=== PATIENT | male | born 1940 | race Two or more races ===

== ENCOUNTER 2017-04-09 19:21 | Inpatient (IN) | payer MEDICARE, OTHER ==
[~2017-04-09] VITALS: Ht 167.6 cm; Wt 63.5 kg
--- NOTE | 2017-04-09 20:32 | NUR ---
Melvin olivarez in [facility] - 04/09/17 at 2241 by JUNE huong merida at [facility] for eval.
--- NOTE | 2017-04-09 20:40 | NUR ---
pt wheeled to er bed 12. bib by unknown. pt appears confused. emirati speaking. gowned ans placed on monitore. hypertensive lpta. awaiting md delgado.
[2017-04-09] MEDS ORDERED: LORAZEPAM INJ 2 MG/ML VIAL ONE (20:42)
--- NOTE | 2017-04-09 20:42 | NUR ---
huong merida at bedside for eval.
--- NOTE | 2017-04-09 20:50 | NUR ---
iv line started blood drawn and sent to lab.
[2017-04-09 20:54] LABS: BASOPHILS # (AUTO) 0.1 /CMM (0.0-0.2); BASOPHILS % (AUTO) 1.1 % (0.0-2.0); EOSINOPHILS # (AUTO) 0.1 /CMM (0.0-0.7); EOSINOPHILS % (AUTO) 1.9 % (0.0-6.0); HEMATOCRIT 31 % (39-51); HEMOGLOBIN 10.3 g/dL (13.5-17.5); LYMPHOCYTES # (AUTO) 2.2 /CMM (0.8-4.8); LYMPHOCYTES % (AUTO) 35.9 % (20.0-44.0); MEAN CORPUSCULAR HEMOGLOBIN 29 PG (26.0-33.0); MEAN CORPUSCULAR HGB CONC 33 g/dl (31.0-36.0); MEAN CORPUSCULAR VOLUME 86 fL (80-96); MONOCYTES # (AUTO) 0.5 /CMM (0.1-1.30); MONOCYTES % (AUTO) 8.6 % (2.0-12.0); NEUTROPHILS # (AUTO) 3.1 /CMM (1.8-8.9); NEUTROPHILS % (AUTO) 52.5 % (43.0-81.0); PLATELET COUNT (AUTO) 206 /CMM (150-450)
[2017-04-09] MEDS ORDERED: LORAZEPAM INJ 2 MG/ML VIAL IV ONE (21:00)
[2017-04-09 21:04] LABS: CALCIUM, SERUM 9.1 mg/dL (8.5-10.1); CARBON DIOXIDE 25 mmol/L (21-32); CHLORIDE 106 mmol/L (98-107); CREATININE 1.6 mg/dL (0.6-1.3); GLUCOSE 65 mg/dL (74-106); POTASSIUM 4.8 mmol/L (3.5-5.1); SODIUM SERUM 139 mmol/L (136-145); UREA NITROGEN, BLOOD 44 mg/dL (7-18)
[2017-04-09 21:09] LABS: ALANINE AMINOTRANSFERASE 24 U/L (12-78); ALBUMIN 3.5 g/dL (3.4-5.0); ALKALINE PHOSPHATASE 106 U/L (46-116); ASPARTATE AMINOTRANSFERASE 12 U/L (15-37); BILIRUBIN,DIRECT 0.1 mg/dL (0.0-0.2); BILIRUBIN,TOTAL 0.3 mg/dL (0.2-1.0); TOTAL PROTEIN, SERUM 6.6 g/dL (6.4-8.2)
[2017-04-09 21:16] LABS: APPEARANCE,URINE Clear (CLEAR); BILIRUBIN,URINE Negative (NEGATIVE); BLOOD, URINE Negative Ery/uL (NEGATIVE); COLOR,URINE Yellow (YELLOW); KETONES,URINE Negative (NEGATIVE); LEUKOCYTE ESTERASE ,URINE Negative (NEGATIVE); NITRITE, URINE Negative (NEGATIVE); PROTEIN,URINE 100 mg/dl (NEGATIVE); UGLUCOSE Negative (NEGATIVE); UROBILINOGEN,URINE 0.2 EU/dL (0.2)
[2017-04-09 21:25] LABS: SALICYLATE 1.1 mg/dL (2.8-20.0)
[2017-04-09 21:28] LABS: BACTERIA,URINE Few /HPF (None Seen); MUCUS,URINE Few /LPF (None Seen); RBC,URINE NONE SEEN /HPF (0-2); SQUAMOUS EPITHELIAL CELL,UR Few /HPF (None Seen); URINE AMORPHOUS URATE Moderate /HPF (None Seen); WBC,URINE 0-2 /HPF (0-3)
--- NOTE | 2017-04-09 22:05 | NUR ---
CALLED ART COMPUTER SYSTEMS TECHNICIAN, HE SAID HE WOULD COME.
[2017-04-09] MEDS ORDERED: DEXTROSE 50%-WATER 50 ML DISP.SYRIN ONE (22:11)
[2017-04-09] MEDS ORDERED: DEXTROSE 50%-WATER 50 ML DISP.SYRIN IVP ONE (22:30)
[2017-04-09 22:31] LABS: ALCOHOL, BLOOD < 3 mg/dL (0-0)
[2017-04-09 22:32] LABS: ACETAMINOPHEN 0 ug/ml (10-30)
--- NOTE | 2017-04-09 23:30 | NUR ---
report to charge nurse theron for tawanna.
--- NOTE | 2017-04-10 00:40 | NUR ---
report given to solange donis for continuation of care.
--- NOTE | 2017-04-10 00:45 | NUR ---
IV removed. Catheter intact and site benign. Pressure and 4x4 applied to site. No bleeding noted.
[2017-04-10] MEDS ORDERED: CLON0.1T PO (01:00)
[2017-04-10] MEDS ORDERED: BISA10SU8 RC (01:00)
[2017-04-10] MEDS ORDERED: ATEN25TA PO (01:00)
[2017-04-10] MEDS ORDERED: DOCU-170 PO (01:00)
[2017-04-10] MEDS ORDERED: LOSA50TA3 PO (01:00)
[2017-04-10] MEDS ORDERED: AMAN100T PO (01:00)
[2017-04-10] MEDS ORDERED: ACET325T53 PO (01:00)
--- NOTE | 2017-04-10 01:00 | NUR ---
pt transfered to [facility] via wheelchair.
--- NOTE | 2017-04-10 01:05 | NUR ---
ADMITTED A 76 Y/O MALE FROM [facility], ON 5150 HOLD FOR GD, PER HOLD PATIENT IS AGITATED, AGGRESSIVE, COMBATIVE TOWARD STAFF AND NON COMPLIANT. PATIENT WAS TRANSFERRED FROM ER TO GPS UNIT VIA WHEELCHAIR. PATIENT ADMITTING DX. OF PSYCHOSIS AND MEDICAL DX. OF HYPERTENSION,DM 2, DEMENTIA, ANEMIA, PARKINSON AND GERD. UPON FACE TO FACE EVALUATION, PATIENT APPEARED ALERT AND ORIENTED X 1, HEBREW SPEAKING, CONFUSED, DISORGANIZED, PARANOID, GUARDED AND AGITATED. REDIRECTION AND EXPLANATION GIVEN TO THE PATIENT. PATIENT USES WHEELCHAIR FOR AMBULATION, PATIENT COOPERATIVE TO THE HEAD TO TOE BODY ASSESSMENT. NO SOB, NO ACUTE DISTRESS, BREATHING EVEN AND UNLABORED, DENIES PAIN AND DISCOMFORT, PATIENT UNABLE TO SIGN PAPER WORKS, PICTURE TAKEN DONE, BELONGINGS AND CONTRABAND INSPECTED AND PLACED ON SAFE. NOTIFIED DR. DE LEON AND NOTIFIED DR. GRECO TO RECONCILE MEDICATION. SNACKS GIVEN TO THE PATIENT. KEPT CLEAN, DRY AND COMFORTABLE, WILL CONTINUE TO MONITOR [id number] FOR SAFETY.
[2017-04-10] MEDS ORDERED: MAGNESIUM HYDROXIDE 30 ML UDC PO PRN ×2 (01:30→10:00)
[2017-04-10] MEDS ORDERED: ACETAMINOPHEN 325 MG TABLET PO PRN ×2 (01:30→08:30)
[2017-04-10] MEDS ORDERED: MAG HYDROX/AL HYDROX/SIMETH 30 ML UDC PO PRN (01:30)
[2017-04-10] MEDS ORDERED: LOSA25TA13 PO (01:35)
[2017-04-10] MEDS ORDERED: QUET400T PO (01:35)
[2017-04-10] MEDS ORDERED: GLUC1KIT SQ (01:35)
[2017-04-10] MEDS ORDERED: DONE10TA44 PO (01:35)
[2017-04-10] MEDS ORDERED: FERR-58 PO (01:35)
[2017-04-10] MEDS ORDERED: MULT-213 PO (01:35)
[2017-04-10] MEDS ORDERED: FAMO20TA8 PO (01:35)
[2017-04-10] MEDS ORDERED: MAG355OR18 PO (01:35)
[2017-04-10] MEDS ORDERED: NA P133E RC (01:35)
[2017-04-10] MEDS ORDERED: VALP250C3 PO (01:35)
[2017-04-10] MEDS ORDERED: MAGN2400 PO (01:35)
[2017-04-10] MEDS ORDERED: DEXT38GE12 PO (01:35)
[2017-04-10] MEDS ORDERED: IPRA3AMP IH (01:35)
[2017-04-10] MEDS ORDERED: PSYL1PAC PO (01:35)
[2017-04-10] MEDS ORDERED: MELA5TAB PO (01:35)
[2017-04-10] MEDS ORDERED: CLONIDINE HCL 0.1 MG TABLET ONE (01:39)
[2017-04-10] MEDS: CLONIDINE HCL 0.1 MG TABLET PO PRN (02:04)
[2017-04-10 02:42] VITALS: BP 182/80
[2017-04-10] MEDS ORDERED: LORAZEPAM 0.5 MG TABLET ONE (05:47)
--- NOTE | 2017-04-10 06:08 | NUR ---
PATIENT NOTED WITH ON AND OFF CONFUSION AND AGITATION. SAFETY PRECAUTION PROVIDED. REDIRECTED THE PATIENT. PATIENT WENT BACK TO SLEEP. WILL CONTINUE TO MONITOR.
[2017-04-10 08:00] VITALS: BP 177/90
[2017-04-10] MEDS ORDERED: DEXTROSE 50%-WATER 50 ML DISP.SYRIN IV PRN (08:00)
[2017-04-10] MEDS: hydrALAZINE HCL 25 MG TABLET PO PRN (08:02)
[2017-04-10] MEDS: ATENOLOL 25 MG TABLET PO SCH (08:11)
[2017-04-10] MEDS ORDERED: CLONIDINE HCL 0.1 MG TABLET PO PRN (08:30)
[2017-04-10] MEDS ORDERED: NA PHOS,M-B/NA PHOS,DI-BA 1 EA ENEMA RC PRN (08:30)
[2017-04-10] MEDS ORDERED: GLUTOSE 15 G GEL..GM. PO PRN (08:30)
[2017-04-10] MEDS ORDERED: BISACODYL SUPP (10 MG) 10 MG/SUPP.RECT SUPP.RECT RC PRN (08:30)
[2017-04-10] MEDS: LOSARTAN POTASSIUM 50 MG TABLET PO SCH (09:00)
[2017-04-10] MEDS ORDERED: LOSARTAN POTASSIUM 25 MG TABLET PO SCH (09:00)
[2017-04-10] MEDS ORDERED: LOSARTAN POTASSIUM 50 MG TABLET PO SCH (09:00)
[2017-04-10] MEDS ORDERED: ATENOLOL 25 MG TABLET PO SCH (09:00)
[2017-04-10] MEDS: DONEPEZIL 5 MG TABLET PO SCH (10:14)
[2017-04-10] MEDS: MULTIVIT, IRON, MIN NO. 8, FA 1 TAB PO SCH (10:14)
[2017-04-10] MEDS: DOCUSATE SODIUM 100 MG CAPSULE PO SCH ×2 (10:14→17:32)
[2017-04-10] MEDS: FERROUS SULFATE (325 MG) 325 MG/TAB TABLET PO SCH ×2 (10:15→17:33)
[2017-04-10] MEDS: FAMOTIDINE (20 MG) 20 MG TABLET PO SCH ×3 (10:15→17:32)
[2017-04-10] MEDS ORDERED: IPRATROPIUM NEB FS 0.5 MG/2.5 ML AMPUL.NEB NEB PRN ×2 (10:30)
[2017-04-10] MEDS ORDERED: GLUCAGON,HUMAN RECOMBINANT 1 MG/VIAL VIAL SQ PRN (10:30)
[2017-04-10] MEDS ORDERED: VALPROIC ACID 250 MG/5 ML UDC PO SCH (11:00)
[2017-04-10] MEDS ORDERED: K PHOS NEUTRAL 250 MG TABLET PO ONE (12:00)
[2017-04-10] MEDS: BLOOD SUGAR DIAGNOSTIC 1 EACH STRIP IN SCH ×3 (12:07→21:28)
[2017-04-10] MEDS: INSULIN REGULAR, HUMAN 100 UNIT/ML 3 ML VIAL SQ PRN ×2 (12:24→17:42)
[2017-04-10] MEDS ORDERED: ALBUTEROL FS 2.5 MG/3 ML VIAL.NEB NEB PRN (13:30)
--- NOTE | 2017-04-10 13:31 | NUR ---
Initial Discharge Plan: Per sister, patient resides at [facility] [address] [place] [address] ([phone]). Sw spoke to patient's sister Dina Garza ([phone]) who confirmed that patient resides at [facility] however, patient's sister stated that the facility is very far away from her as she lives in [place] and would prefer something closer. Sw spoke to Essence the social science teacher at the facility who stated that patient was on a bed hold however the patient's sister was looking for a closer placement to her. Sw will help form a safe and proper discharge
[2017-04-10] MEDS: AMANTADINE SUSP 50 MG/5 ML UDC PO SCH (13:43)
[2017-04-10 16:00] VITALS: BP 145/45
[2017-04-10] MEDS: QUETIAPINE FUMARATE 100 MG TABLET PO SCH ×2 (17:32→21:28)
[2017-04-10 18:41] LABS: CREATININE 1.2 mg/dL (0.6-1.3)
[2017-04-10 19:04] LABS: CHOLESTEROL 133 mg/dL (<200); HDL CHOLESTEROL 58 mg/dL (40-60); LDL 59 mg/dL (0-99); TRIGLYCERIDES 81 mg/dL (30-150)
--- NOTE | 2017-04-10 20:00 | NUR ---
GPS RN NOTES PT REFUSED VITAL SIGNS.
[2017-04-10] MEDS ORDERED: DIVALPROEX SODIUM 500 MG TABLET.DR PO SCH (21:00)
[2017-04-10] MEDS: ZOLPIDEM TARTRATE 5 MG TABLET PO PRN (21:28)
[2017-04-10] MEDS ORDERED: Medication Not On Formulary EA (Melatonin 5 MG) PO SCH (22:00)
[2017-04-11] MEDS: LORAZEPAM 0.5 MG TABLET PO PRN (03:38)
[2017-04-11] MEDS: INSULIN REGULAR, HUMAN 100 UNIT/ML 3 ML VIAL SQ PRN ×3 (07:28→21:09)
[2017-04-11] MEDS: BLOOD SUGAR DIAGNOSTIC 1 EACH STRIP IN SCH ×4 (07:53→21:04)
[2017-04-11 08:00] VITALS: BP 154/60
[2017-04-11] MEDS: FAMOTIDINE (20 MG) 20 MG TABLET PO SCH ×3 (09:07→16:53)
[2017-04-11] MEDS: QUETIAPINE FUMARATE 100 MG TABLET PO SCH ×4 (09:07→20:56)
[2017-04-11] MEDS: ATENOLOL 25 MG TABLET PO SCH (09:07)
[2017-04-11] MEDS: MULTIVIT, IRON, MIN NO. 8, FA 1 TAB PO SCH (09:07)
[2017-04-11] MEDS: DOCUSATE SODIUM 100 MG CAPSULE PO SCH ×2 (09:07→16:53)
[2017-04-11] MEDS: DONEPEZIL 5 MG TABLET PO SCH (09:08)
[2017-04-11] MEDS: PSYLLIUM SEED 1 PKT PACKET PO SCH (09:08)
[2017-04-11] MEDS: LOSARTAN POTASSIUM 50 MG TABLET PO SCH (09:08)
[2017-04-11] MEDS: FERROUS SULFATE (325 MG) 325 MG/TAB TABLET PO SCH ×2 (09:08→16:53)
[2017-04-11] MEDS: AMANTADINE SUSP 50 MG/5 ML UDC PO SCH (10:40)
[2017-04-11] MEDS: DIVALPROEX SODIUM 125 MG CAP.SPRINK PO SCH ×2 (10:41→20:56)
[2017-04-11 16:00] VITALS: BP 141/74
--- NOTE | 2017-04-11 19:32 | NUR ---
GPS/RN NOTE: SITTING INSIDE THE DINING AREA ON A TERRENCE CHAIR. NO APPARENT DISTRESS NOTED. NO VERBAL RESPONSE WHEN ENGAGED, BUT NODS HIS HEAD.
[2017-04-11 20:00] VITALS: BP 138/60
--- NOTE | 2017-04-11 21:04 | NUR ---
GPS/RN NOTE: ACCUCHECK 178 MG/DL.
[2017-04-12] MEDS: BLOOD SUGAR DIAGNOSTIC 1 EACH STRIP IN SCH ×4 (07:54→21:20)
[2017-04-12 08:00] VITALS: BP 170/73
[2017-04-12] MEDS: MULTIVIT, IRON, MIN NO. 8, FA 1 TAB PO SCH (08:14)
[2017-04-12] MEDS: FERROUS SULFATE (325 MG) 325 MG/TAB TABLET PO SCH ×2 (08:14→16:04)
[2017-04-12] MEDS: QUETIAPINE FUMARATE 100 MG TABLET PO SCH ×4 (08:14→21:16)
[2017-04-12] MEDS: DIVALPROEX SODIUM 125 MG CAP.SPRINK PO SCH ×2 (08:14→21:16)
[2017-04-12] MEDS: PSYLLIUM SEED 1 PKT PACKET PO SCH (08:14)
[2017-04-12] MEDS: DOCUSATE SODIUM 100 MG CAPSULE PO SCH ×2 (08:14→16:04)
[2017-04-12] MEDS: DONEPEZIL 5 MG TABLET PO SCH (08:14)
[2017-04-12] MEDS: FAMOTIDINE (20 MG) 20 MG TABLET PO SCH ×3 (08:14→16:04)
[2017-04-12] MEDS: ATENOLOL 25 MG TABLET PO SCH (08:15)
[2017-04-12] MEDS: LOSARTAN POTASSIUM 50 MG TABLET PO SCH (08:15)
[2017-04-12] MEDS: AMANTADINE SUSP 50 MG/5 ML UDC PO SCH (08:16)
[2017-04-12] MEDS: INSULIN REGULAR, HUMAN 100 UNIT/ML 3 ML VIAL SQ PRN ×2 (12:01→21:22)
[2017-04-12 16:08] VITALS: BP 144/82
--- NOTE | 2017-04-12 19:41 | NUR ---
GPS/RN NOTE: PATIENT AT THE DINING AREA ON THE TERRENCE-CHAIR. NO APPARENT DISTRESS NOTED.
[2017-04-12 20:00] VITALS: BP 140/71
[2017-04-12] MEDS: LORAZEPAM 0.5 MG TABLET PO PRN (21:15)
--- NOTE | 2017-04-12 21:20 | NUR ---
GPS/RN NOTE: ACCUCHECK 139 MG/DL, 2 UNITS REG. INSULIN SC ADMINISTERED, PUDDING GIVEN FOR SNACKS.
[2017-04-13 07:06] LABS: BASOPHILS # (AUTO) 0.1 /CMM (0.0-0.2); BASOPHILS % (AUTO) 0.7 % (0.0-2.0); EOSINOPHILS # (AUTO) 0.3 /CMM (0.0-0.7); EOSINOPHILS % (AUTO) 3.5 % (0.0-6.0); HEMATOCRIT 34 % (39-51); HEMOGLOBIN 11.2 g/dL (13.5-17.5); LYMPHOCYTES # (AUTO) 3.5 /CMM (0.8-4.8); LYMPHOCYTES % (AUTO) 43.8 % (20.0-44.0); MEAN CORPUSCULAR HEMOGLOBIN 29 PG (26.0-33.0); MEAN CORPUSCULAR HGB CONC 33 g/dl (31.0-36.0); MEAN CORPUSCULAR VOLUME 88 fL (80-96); MONOCYTES # (AUTO) 0.9 /CMM (0.1-1.30); MONOCYTES % (AUTO) 11.5 % (2.0-12.0); NEUTROPHILS # (AUTO) 3.2 /CMM (1.8-8.9); NEUTROPHILS % (AUTO) 40.5 % (43.0-81.0); PLATELET COUNT (AUTO) 271 /CMM (150-450); RDW COEFFICIENT OF VARIATION 18.1 (11.5-15.0); WHITE BLOOD COUNT (AUTO) 7.9 K/uL (4.3-11.0)
[2017-04-13 07:28] LABS: CALCIUM, SERUM 8.8 mg/dL (8.5-10.1); CARBON DIOXIDE 28 mmol/L (21-32); CHLORIDE 102 mmol/L (98-107); GLUCOSE 96 mg/dL (74-106); MAGNESIUM 2.1 mg/dL (1.8-2.4); PHOSPHORUS 4.9 mg/dL (2.5-4.9); POTASSIUM 5.5 mmol/L (3.5-5.1); SODIUM SERUM 141 mmol/L (136-145); UREA NITROGEN, BLOOD 40 mg/dL (7-18)
[2017-04-13] MEDS: BLOOD SUGAR DIAGNOSTIC 1 EACH STRIP IN SCH ×4 (07:30→21:05)
--- NOTE | 2017-04-13 07:30 | NUR ---
GPS RN AM NOTE: PT ON GERICHAIR IN DINING AREA. NO APPARENT DISTRESS NOTED. NON VERBAL. FLAT AFFECT. UNINTELLIGIBLE WORDS, UNABLE TO DO ACCUCHECK, PATIENT PULLS BACK HIS ARMS/HANDS AND HITS. WILL CONT TO MONITOR.
[2017-04-13 08:00] VITALS: BP 131/67
[2017-04-13 08:16] VITALS: BP 131/67
[2017-04-13] MEDS: FAMOTIDINE (20 MG) 20 MG TABLET PO SCH ×3 (08:58→16:21)
[2017-04-13] MEDS: DIVALPROEX SODIUM 125 MG CAP.SPRINK PO SCH ×2 (08:58→21:26)
[2017-04-13] MEDS: ATENOLOL 25 MG TABLET PO SCH (08:59)
[2017-04-13] MEDS: MULTIVIT, IRON, MIN NO. 8, FA 1 TAB PO SCH (08:59)
[2017-04-13] MEDS: DOCUSATE SODIUM 100 MG CAPSULE PO SCH ×2 (08:59→16:21)
[2017-04-13] MEDS: DONEPEZIL 5 MG TABLET PO SCH (08:59)
[2017-04-13] MEDS: LOSARTAN POTASSIUM 50 MG TABLET PO SCH (08:59)
[2017-04-13] MEDS: QUETIAPINE FUMARATE 100 MG TABLET PO SCH ×4 (08:59→21:26)
[2017-04-13] MEDS: FERROUS SULFATE (325 MG) 325 MG/TAB TABLET PO SCH ×2 (08:59→16:21)
[2017-04-13] MEDS: PSYLLIUM SEED 1 PKT PACKET PO SCH (09:05)
[2017-04-13] MEDS: AMANTADINE SUSP 50 MG/5 ML UDC PO SCH (09:05)
[2017-04-13] MEDS: LORAZEPAM 0.5 MG TABLET PO PRN ×2 (10:46→23:08)
--- NOTE | 2017-04-13 12:00 | NUR ---
GPS RN NOTE: STILL WITH UNINTELLIGIBLE WORDS, UNABLE TO DO ACCUCHECK, PATIENT SPITS AND HITS. WILL CONT TO MONITOR.
[2017-04-13 16:00] VITALS: BP 114/66
[2017-04-13] MEDS: INSULIN REGULAR, HUMAN 100 UNIT/ML 3 ML VIAL SQ PRN (16:34)
--- NOTE | 2017-04-13 19:14 | NUR ---
GPS/RN NOTE: ROUNDED, PATIENT WAS SEEN RESTING QUIETLY AT THE DINING ROOM, CALM, SHOWING NO SIGNS OF ANY DISTRESS.
[2017-04-13 20:14] VITALS: BP 133/56
--- NOTE | 2017-04-13 21:06 | NUR ---
GPS/RN NOTE: ACCUCHECK 89 MG/DL, NO INSULIN SLIDING SCALE DUE AT THIS TIME.
[2017-04-14 07:08] LABS: BASOPHILS % (AUTO) 0.6 % (0.0-2.0); EOSINOPHILS # (AUTO) 0.2 /CMM (0.0-0.7); EOSINOPHILS % (AUTO) 4.2 % (0.0-6.0); HEMATOCRIT 31 % (39-51); HEMOGLOBIN 10.4 g/dL (13.5-17.5); LYMPHOCYTES # (AUTO) 1.7 /CMM (0.8-4.8); LYMPHOCYTES % (AUTO) 31.1 % (20.0-44.0); MEAN CORPUSCULAR HEMOGLOBIN 29 PG (26.0-33.0); MEAN CORPUSCULAR HGB CONC 34 g/dl (31.0-36.0); MEAN CORPUSCULAR VOLUME 87 fL (80-96); MONOCYTES # (AUTO) 0.7 /CMM (0.1-1.30); MONOCYTES % (AUTO) 12.9 % (2.0-12.0); NEUTROPHILS # (AUTO) 2.8 /CMM (1.8-8.9); NEUTROPHILS % (AUTO) 51.2 % (43.0-81.0); PLATELET COUNT (AUTO) 248 /CMM (150-450); RDW COEFFICIENT OF VARIATION 17.4 (11.5-15.0); RED BLOOD CELL COUNT(AUTO) 3.57 MIL/uL (4.5-6.0); WHITE BLOOD COUNT (AUTO) 5.4 K/uL (4.3-11.0)
[2017-04-14] MEDS: BLOOD SUGAR DIAGNOSTIC 1 EACH STRIP IN SCH ×4 (07:28→21:47)
[2017-04-14 07:42] LABS: ALANINE AMINOTRANSFERASE 43 U/L (12-78); ALKALINE PHOSPHATASE 124 U/L (46-116); ASPARTATE AMINOTRANSFERASE 22 U/L (15-37); BILIRUBIN,TOTAL 0.2 mg/dL (0.2-1.0); CALCIUM, SERUM 8.3 mg/dL (8.5-10.1); CARBON DIOXIDE 28 mmol/L (21-32); CHLORIDE 102 mmol/L (98-107); CREATININE 1.6 mg/dL (0.6-1.3); GLUCOSE 181 mg/dL (74-106); MAGNESIUM 1.9 mg/dL (1.8-2.4); PHOSPHORUS 3.4 mg/dL (2.5-4.9); POTASSIUM 5.3 mmol/L (3.5-5.1); SODIUM SERUM 135 mmol/L (136-145); TOTAL PROTEIN, SERUM 6.7 g/dL (6.4-8.2); UREA NITROGEN, BLOOD 36 mg/dL (7-18)
[2017-04-14 08:00] VITALS: BP 173/74
[2017-04-14] MEDS: AMANTADINE SUSP 50 MG/5 ML UDC PO SCH (08:00)
[2017-04-14] MEDS: FERROUS SULFATE (325 MG) 325 MG/TAB TABLET PO SCH ×2 (08:01→16:07)
[2017-04-14] MEDS: PSYLLIUM SEED 1 PKT PACKET PO SCH (08:01)
[2017-04-14] MEDS: FAMOTIDINE (20 MG) 20 MG TABLET PO SCH ×3 (08:01→16:06)
[2017-04-14] MEDS: MULTIVIT, IRON, MIN NO. 8, FA 1 TAB PO SCH (08:01)
[2017-04-14] MEDS: DOCUSATE SODIUM 100 MG CAPSULE PO SCH ×2 (08:01→16:07)
[2017-04-14] MEDS: hydrALAZINE HCL 25 MG TABLET PO PRN (08:01)
[2017-04-14] MEDS: ATENOLOL 25 MG TABLET PO SCH (08:01)
[2017-04-14] MEDS: QUETIAPINE FUMARATE 100 MG TABLET PO SCH ×4 (08:01→21:47)
[2017-04-14] MEDS: DONEPEZIL 5 MG TABLET PO SCH (08:02)
[2017-04-14] MEDS: DIVALPROEX SODIUM 125 MG CAP.SPRINK PO SCH ×2 (08:02→21:47)
[2017-04-14] MEDS: INSULIN REGULAR, HUMAN 100 UNIT/ML 3 ML VIAL SQ PRN ×3 (08:10→21:58)
[2017-04-14 08:22] LABS: CREATINE KINASE, TOTAL 102 U/L (39-308)
[2017-04-14 12:00] VITALS: BP 148/66
[2017-04-14 14:17] LABS: APPEARANCE,URINE CLEAR (CLEAR); BILIRUBIN,URINE NEGATIVE (NEGATIVE); BLOOD, URINE NEGATIVE Ery/uL (NEGATIVE); COLOR,URINE YELLOW (YELLOW); KETONES,URINE NEGATIVE (NEGATIVE); LEUKOCYTE ESTERASE ,URINE NEGATIVE (NEGATIVE); NITRITE, URINE NEGATIVE (NEGATIVE); PH,URINE 6.5 (5.0-8.0); PROTEIN,URINE 1+ mg/dl (NEGATIVE); UGLUCOSE NEGATIVE (NEGATIVE); UROBILINOGEN,URINE 0.2 EU/dL (0.2)
[2017-04-14 15:04] LABS: BACTERIA,URINE None seen /HPF (None Seen); RBC,URINE NONE SEEN /HPF (0-2); SQUAMOUS EPITHELIAL CELL,UR Rare /HPF (None Seen); WBC,URINE 0-2 /HPF (0-3)
--- NOTE | 2017-04-14 15:08 | NUR ---
bible worker faxed initial review packet to [facility] (phone: [phone]/ ) [address] [place] [address]. bible worker will follow-up.
[2017-04-14 15:25] LABS: EOSINOPHIL,URINE None Seen
[2017-04-14 16:00] VITALS: BP 163/76
[2017-04-14 16:07] LABS: URINE TOTAL PROTEIN 64.7 mg/dL (0-11.9)
[2017-04-14] MEDS: CLONIDINE HCL 0.1 MG TABLET PO PRN (17:13)
[2017-04-14 18:30] VITALS: BP 140/68
[2017-04-14 19:48] VITALS: BP 140/62
[2017-04-14] MEDS: ZOLPIDEM TARTRATE 5 MG TABLET PO PRN (23:20)
[2017-04-15 07:29] LABS: CALCIUM, SERUM 8.2 mg/dL (8.5-10.1); CARBON DIOXIDE 29 mmol/L (21-32); CHLORIDE 104 mmol/L (98-107); CREATININE 1.4 mg/dL (0.6-1.3); GLUCOSE 226 mg/dL (74-106); POTASSIUM 5.6 mmol/L (3.5-5.1); SODIUM SERUM 137 mmol/L (136-145); UREA NITROGEN, BLOOD 29 mg/dL (7-18)
[2017-04-15 08:00] VITALS: BP 170/85
[2017-04-15] MEDS: DIVALPROEX SODIUM 125 MG CAP.SPRINK PO SCH ×2 (08:23→21:06)
[2017-04-15] MEDS: MULTIVIT, IRON, MIN NO. 8, FA 1 TAB PO SCH (08:24)
[2017-04-15] MEDS: FAMOTIDINE (20 MG) 20 MG TABLET PO SCH ×3 (08:24→16:34)
[2017-04-15] MEDS: ATENOLOL 25 MG TABLET PO SCH (08:24)
[2017-04-15] MEDS: DOCUSATE SODIUM 100 MG CAPSULE PO SCH ×2 (08:24→16:34)
[2017-04-15] MEDS: QUETIAPINE FUMARATE 100 MG TABLET PO SCH ×4 (08:24→21:06)
[2017-04-15] MEDS: FERROUS SULFATE (325 MG) 325 MG/TAB TABLET PO SCH ×2 (08:24→16:34)
[2017-04-15] MEDS: DONEPEZIL 5 MG TABLET PO SCH (08:24)
[2017-04-15] MEDS: AMANTADINE SUSP 50 MG/5 ML UDC PO SCH (08:25)
[2017-04-15] MEDS: PSYLLIUM SEED 1 PKT PACKET PO SCH (08:25)
[2017-04-15] MEDS: BLOOD SUGAR DIAGNOSTIC 1 EACH STRIP IN SCH ×4 (08:25→21:52)
[2017-04-15 10:21] LABS: CALCITRIOL VIT D,1, 25 DIHYDRO 27.1 pg/mL (19.9-79.3)
[2017-04-15] MEDS: LORAZEPAM 0.5 MG TABLET PO PRN (11:09)
[2017-04-15] MEDS: INSULIN REGULAR, HUMAN 100 UNIT/ML 3 ML VIAL SQ PRN ×3 (12:32→21:55)
[2017-04-15] MEDS ORDERED: SODIUM POLYSTYRENE SULFONATE 15 G/60 ML BOTTLE PO ONE (15:00)
[2017-04-15 16:00] VITALS: BP 133/61
--- NOTE | 2017-04-15 16:00 | NUR ---
collision worker spoke December (admissions) to [facility] (phone: [phone]/ ) [address] [place] [address]. who stated that they cannot accept the patient at this time because it appears that he does not have any days left. collision worker will follow-up.
--- NOTE | 2017-04-15 16:04 | NUR ---
asbestos hazard abatement worker faxed initial review packet to [facility] [place] [address] (phone: [phone]/ ) asbestos hazard abatement worker will follow-up.
[2017-04-15 20:05] VITALS: BP 150/71
[2017-04-15 22:27] VITALS: BP 135/70
[2017-04-15] MEDS: ZOLPIDEM TARTRATE 5 MG TABLET PO PRN (23:24)
--- NOTE | 2017-04-16 06:26 | NUR ---
RN GPS NOTES PATIENT RESTING IN HER BED, NO CHANGES IN STATUS. ALL NEEDS ATTENDED TO. WILL ENDORSE TO NEXT SHIFT FOR CONTINUITY CARE.
--- NOTE | 2017-04-16 06:27 | NUR ---
RN GPS NOTES PATIENT RESTING IN HIS BED, NO CHANGES IN STATUS. ALL NEEDS ATTENDED TO. WILL ENDORSE TO NEXT SHIFT FOR CONTINUITY CARE.
[2017-04-16] MEDS: DIVALPROEX SODIUM 125 MG CAP.SPRINK PO SCH ×3 (07:59→21:09)
[2017-04-16] MEDS: DONEPEZIL 5 MG TABLET PO SCH (07:59)
[2017-04-16] MEDS: PSYLLIUM SEED 1 PKT PACKET PO SCH (07:59)
[2017-04-16] MEDS: FAMOTIDINE (20 MG) 20 MG TABLET PO SCH ×3 (07:59→17:34)
[2017-04-16] MEDS: QUETIAPINE FUMARATE 100 MG TABLET PO SCH ×5 (07:59→21:10)
[2017-04-16] MEDS: FERROUS SULFATE (325 MG) 325 MG/TAB TABLET PO SCH ×2 (07:59→17:34)
[2017-04-16 08:00] VITALS: BP 165/67
[2017-04-16] MEDS: BLOOD SUGAR DIAGNOSTIC 1 EACH STRIP IN SCH ×5 (08:00→22:00)
[2017-04-16] MEDS: MULTIVIT, IRON, MIN NO. 8, FA 1 TAB PO SCH (08:00)
[2017-04-16] MEDS: DOCUSATE SODIUM 100 MG CAPSULE PO SCH ×2 (08:00→17:34)
[2017-04-16] MEDS: AMANTADINE SUSP 50 MG/5 ML UDC PO SCH (08:00)
[2017-04-16] MEDS: ATENOLOL 25 MG TABLET PO SCH (08:00)
[2017-04-16 09:17] LABS: *SPE A/G RATIO 0.9 (0.7-1.7); *SPE ALBUMIN 2.9 g/dL (2.9-4.4); *SPE ALPHA-1-GLOBULIN 0.2 g/dL (0.0-0.4); *SPE ALPHA-2-GLOBULIN 0.9 g/dL (0.4-1.0); *SPE BETA GLOBULIN 1.1 g/dL (0.7-1.3); *SPE GLOBULIN, TOTAL 3.3 g/dL (2.2-3.9); *SPE M-SPIKE Not Observed g/dL (Not Observed); *SPE PROTEIN TOTAL 6.2 g/dL (6.0-8.5); *SPEGAMMA GLOBULIN 1.1 g/dL (0.4-1.8)
--- NOTE | 2017-04-16 09:18 | NUR ---
horticultural worker pt bs 155 refused 2units of insulin
[2017-04-16] MEDS: INSULIN REGULAR, HUMAN 100 UNIT/ML 3 ML VIAL SQ PRN (12:16)
--- NOTE | 2017-04-16 13:50 | NUR ---
TIRE STRIPPER PT REFUSED LAB BLOOD DRAW 2ND TIME, TEACHING DONE PT STILL REFUSED BLOOD DRAW.
[2017-04-16 16:00] VITALS: BP 151/86
[2017-04-16 20:13] VITALS: BP 162/85
--- NOTE | 2017-04-16 22:49 | NUR ---
GPS RN NOTES PATIENT STATED THAT HE WAS GOING TO TAKE HIS MEDICATIONS. WHEN MEDS. WERE GIVEN, PATIENT REFUSED IT. WAS YELLING IN [place]. WAS SHOWING A FIST AND TRIED TO HIT RN. ALSO REFUSED BLOOD SUGAR CHECK. MEDICATION AND BLOOD SUGAR CHECK OFFERED 3X. PATIENT CONTINUES TO REFUSE.
[2017-04-17] MEDS: BLOOD SUGAR DIAGNOSTIC 1 EACH STRIP IN SCH ×4 (07:38→21:35)
[2017-04-17 08:00] VITALS: BP 142/62
[2017-04-17] MEDS: MULTIVIT, IRON, MIN NO. 8, FA 1 TAB PO SCH (08:31)
[2017-04-17] MEDS: FAMOTIDINE (20 MG) 20 MG TABLET PO SCH ×3 (08:31→16:59)
[2017-04-17] MEDS: FERROUS SULFATE (325 MG) 325 MG/TAB TABLET PO SCH ×2 (08:31→16:59)
[2017-04-17] MEDS: QUETIAPINE FUMARATE 100 MG TABLET PO SCH ×4 (08:31→21:22)
[2017-04-17] MEDS: DOCUSATE SODIUM 100 MG CAPSULE PO SCH ×2 (08:31→16:59)
[2017-04-17] MEDS: DIVALPROEX SODIUM 125 MG CAP.SPRINK PO SCH ×2 (08:31→21:22)
[2017-04-17] MEDS: ATENOLOL 25 MG TABLET PO SCH (08:32)
[2017-04-17] MEDS: PSYLLIUM SEED 1 PKT PACKET PO SCH (08:32)
[2017-04-17] MEDS: DONEPEZIL 5 MG TABLET PO SCH (08:32)
[2017-04-17] MEDS: AMANTADINE SUSP 50 MG/5 ML UDC PO SCH (08:33)
--- NOTE | 2017-04-17 10:16 | NUR ---
soaker soda worker attempted to contact the patient's family. Patient's sister and two nephews / / . However, they were unavailable. soaker soda worker left patient's nephew Dimas Awad a detailed message regarding the patient's discharge plan and left a direct contact number. soaker soda worker will attempt again later.
--- NOTE | 2017-04-17 12:35 | NUR ---
GPS RN NOTE: RECEIVED PATIENT SITTING IN TERRENCE CHAIR IN ACTIVITIES ROOM WATCHING TV. PT IS ALERT AND ORIENTED AND MUMBLES WORDS. NO SOB OR RESPIRATORY DISTRESS NOTED. ALL NEEDS MET AND ANTICIPATED. WILL CONT TO MONITOR.
--- NOTE | 2017-04-17 12:40 | NUR ---
GPS RN NOTE: PATIENT ACCUCHECK BS 472 MG/DL. 10 UNITS OF INSULIN PER SLIDING SCALE GIVEN. CHARGE NURSE INFORMED. SENIOR MEDICAL DIRECTOR EDITH GAONA NOTIFIED. ORDER TO RECHECK BS IN 2 HR. WILL CONT TO MONITOR.
[2017-04-17] MEDS: INSULIN REGULAR, HUMAN 100 UNIT/ML 3 ML VIAL SQ PRN ×3 (12:41→21:36)
--- NOTE | 2017-04-17 13:13 | NUR ---
magazine worker spoke to patient's sister Dina Garza ([phone]) who was agreeable with the discharge plan and was very grateful that patient is being discharged to [facility] [address] [place] [address] (phone: [phone]) as it is closer to her than the previous facility.
--- NOTE | 2017-04-17 13:14 | NUR ---
GPS RN NOTE: PT REFUSED LAB DRAW. PER ACCOUNTANT SYSTEMS, WILL RETURN LATER FOR ANOTHER ATTEMPT. WILL CONT TO MONITOR.
[2017-04-17 16:00] VITALS: BP 128/65
--- NOTE | 2017-04-17 17:48 | NUR ---
GPS RN NOTE: BS 62 MG/DL PRIOR TO MEAL. WILL CONT TO MONITOR.
--- NOTE | 2017-04-17 18:40 | NUR ---
GPS RN NOTE: PATIENT BS 80 MG/DL. CHARGE NURSE NOTIFIED, ASYMPTOMATIC. OJ BOX GIVEN. WILL CONT TO MONITOR.
--- NOTE | 2017-04-17 19:42 | NUR ---
RN GPS NOTES PT ALERT IN TERRENCE CHAIR, NONVERBAL. ALL NEEDS ATTENDED TO. WILL ENDORSE TO HARNESS REPAIRER NURSE FOR MICHELET.
[2017-04-17 19:52] LABS: CALCIUM, SERUM 8.7 mg/dL (8.5-10.1); CARBON DIOXIDE 30 mmol/L (21-32); CHLORIDE 104 mmol/L (98-107); CREATININE 1.5 mg/dL (0.6-1.3); GLUCOSE 51 mg/dL (74-106); POTASSIUM 4.6 mmol/L (3.5-5.1); SODIUM SERUM 139 mmol/L (136-145); UREA NITROGEN, BLOOD 30 mg/dL (7-18)
[2017-04-17 20:00] VITALS: BP 123/64
--- NOTE | 2017-04-17 21:40 | NUR ---
GPS/FASTENER SEWING MACHINE OPERATOR NOTES: ACCUCHECK DONE. BS NOTED AT 80. NO COVERAGE NEEDED. SNACKS GIVEN. WILL CONTINUE TO MONITOR.
--- NOTE | 2017-04-17 23:30 | NUR ---
GPS/JUNIOR NETWORK ADMINISTRATOR NOTES: RANDOM GLUCOSE ORDERED PER HOSPITAL PROTOCOL. RESULT IS 121. ACCUCHECK REDONE AND BS NOTED AT 163. NO DISTRESS NOTED AT THIS TIME. WILL CONTINUE TO MONITOR.
[2017-04-18] MEDS: INSULIN REGULAR, HUMAN 100 UNIT/ML 3 ML VIAL SQ PRN ×2 (07:49→12:18)
[2017-04-18] MEDS: BLOOD SUGAR DIAGNOSTIC 1 EACH STRIP IN SCH ×2 (07:50→12:16)
[2017-04-18 08:00] VITALS: BP 143/63
[2017-04-18] MEDS: DIVALPROEX SODIUM 125 MG CAP.SPRINK PO SCH (08:53)
[2017-04-18] MEDS: DONEPEZIL 5 MG TABLET PO SCH (08:54)
[2017-04-18] MEDS: QUETIAPINE FUMARATE 100 MG TABLET PO SCH ×2 (08:54→12:18)
[2017-04-18] MEDS: DOCUSATE SODIUM 100 MG CAPSULE PO SCH (08:54)
[2017-04-18] MEDS: PSYLLIUM SEED 1 PKT PACKET PO SCH (08:54)
[2017-04-18] MEDS: FERROUS SULFATE (325 MG) 325 MG/TAB TABLET PO SCH (08:54)
[2017-04-18] MEDS: FAMOTIDINE (20 MG) 20 MG TABLET PO SCH ×2 (08:54→12:18)
[2017-04-18] MEDS: ATENOLOL 25 MG TABLET PO SCH (08:54)
[2017-04-18] MEDS: MULTIVIT, IRON, MIN NO. 8, FA 1 TAB PO SCH (08:54)
--- NOTE | 2017-04-18 09:27 | NUR ---
DR. DE LEON GAVE AN ORDER TO D/C HOLD AND D[facility]C TO [facility]. PT. WITHOUT DISTRESS, DENIES SUICIDAL AND HOMICIDAL AND TO FOLLOW UP WITH PSYCH AND MEDICAL DOCTORS.
--- NOTE | 2017-04-18 11:20 | NUR ---
GPS KITCHEN CLEANER NOTES PHARMACY WAS CALLED AT 0915 AND AGAIN AT 1030 IN REGARDS TO THE PT'S 0900 SYMMETREL WHICH IS NOT ON THE UNIT. PER SAMIA THE PHARMACIST, THE MEDICATION IS ON IT'S WAY
[2017-04-18] MEDS: AMANTADINE SUSP 50 MG/5 ML UDC PO SCH (11:30)
--- NOTE | 2017-04-18 13:56 | NUR ---
Patient will be discharged to [facility] [place] [address] [address] [address] (phone: [phone]). Via med response. Patient's sister Dina Garza ([phone]) was notified and agreeable with the discharge plan. Patient's mood and affect are appropriate. Patient denied suicidal and homicidal ideations. Patient will continue to see psychiatrist Dr. Velazco ([phone]) at the facility. Facilitated info to IDT team who are in agreement with discharge arrangement. The multidisciplinary exitcare form was done, printed, signed, and given to the patient.
[2017-04-18] MEDS: hydrALAZINE HCL 25 MG TABLET PO PRN (15:40)
--- NOTE | 2017-04-18 15:47 | NUR ---
GPS CNC LASER OPERATOR DISCHARGE NOTES PT. WAS DISCHARGED TO [facility]. REPORT WAS GIVEN TO SEUN THE NURSING ASSOCIATE PROFESSOR OF LITERACY. DR. DE LEON CLEARED PT FOR DISCHARGE. EDITH GAONA THE GEODETIC SURVEYOR WAS MADE AWARE OF DISCHARGE AND MEDICALLY CLEARED THE PATIENT. MEDICATION RECONCILIATION WAS COMPLETED AND A COPY WAS SENT TO THE FACILITY. DISCHARGE INSTRUCTIONS WERE DISCUSSED WITH RECEIVING FACILITY PT. COULD NOT SIGN PAPERWORK DUE TO ALTERED MENTAL STATUS. BELONGINGS WERE REVIEWED AND SENT WITH PATIENT. PT LEFT VIA AMBULANCE TRANSPORT IN STABLE CONDITION. ALL NEEDS WERE MET DURING SHIFT AND ORDERS CARRIED OUT ACCORDINGLY.
[2017-04-18 16:00] VITALS: BP 152/78
== END 2017-04-18 15:45 | DRG 885 ==
LOC: ER 19:25 → GPS 04-10 00:39
PROVIDERS: ADMIT Psychiatry & Neurology Psychiatry; ATTEND Psychiatry & Neurology Psychiatry
DX: F20.0 Paranoid schizophrenia (principal); F02.80 Dementia in other diseases classified elsewhere, unspecified severity, without behavioral disturbance, psychotic disturbance, mood disturbance, and anxiety; N17.9 Acute kidney failure, unspecified; N18.3 Chronic kidney disease, stage 3 (moderate); G93.40 Encephalopathy, unspecified; I12.9 Hypertensive chronic kidney disease with stage 1 through stage 4 chronic kidney disease, or unspecified chronic kidney disease; E11.22 Type 2 diabetes mellitus with diabetic chronic kidney disease; D64.9 Anemia, unspecified; E11.649 Type 2 diabetes mellitus with hypoglycemia without coma; E86.9 Volume depletion, unspecified; E87.5 Hyperkalemia; G20 Parkinson's disease; F29 Unspecified psychosis not due to a substance or known physiological condition; F32.9 Major depressive disorder, single episode, unspecified; D63.8 Anemia in other chronic diseases classified elsewhere; Z79.899 Other long term (current) drug therapy; K21.9 Gastro-esophageal reflux disease without esophagitis
CPT/HCPCS: 36415; 80048-TC; 80053-TC; 80061-TC; 80076-TC; 80164-TC; 80305; 81000-TC; 82306; 82550-TC; 82565-TC; 82570-TC; 82652; 82945-TC; 82962-TC; 83735-TC; 83970; 84100-TC; 84155; 84155-TC; 84165; 84300-TC; 85025-TC; 87081-TC; A4606; G0480; J1815; J2060; Z7610